=== PATIENT | female | born 1990 | race African-American/Black ===

== ENCOUNTER 2018-07-07 15:54 | Emergency (ER) | payer OTHER ==
[~2018-07-07] VITALS: Ht 157.5 cm; Wt 59.0 kg
[2018-07-07 16:00] VITALS: BP 114/75
== END 2018-07-07 16:26 | disposition home or self-care (01) ==
LOC: ER 15:54
DX: L72.3 Sebaceous cyst (principal); F12.10 Cannabis abuse, uncomplicated
CPT/HCPCS: Z7502